=== PATIENT | female | born 1955 | race Caucasian/White ===

== ENCOUNTER 2019-09-16 14:16 | Outpatient (CLI) | payer OTHER, SELFPAY ==
--- NOTE | ~2019-09-16 | MM_ITS ---
EXAMINATION: MM screening [facility] w francie HISTORY: Screening mammogram TECHNIQUE: Craniocaudal and mediolateral oblique 3-D tomosynthesis images were obtained and synthetic 2-D images were generated. CAD analysis was submitted and interpreted. COMPARISON: 09/04/2018, 08/30/2017, 07/06/2016 bilateral digital screening mammogram examinations BREAST PARENCHYMAL COMPOSITION: There are scattered areas of fibroglandular density. FINDINGS: There is no evidence of suspicious mass, calcification, or architectural distortion to sugg est malignancy in either breast. There has been no suspicious interval change. IMPRESSION: 1. No mammographic evidence of malignancy. 2. Recommend routine screening mammography in one year. BI-RADS Category 1: Negative.. Reviewed, dictated and finalized at location A. CTOR OF HOUSING
== END 2019-09-16 14:17 | disposition home or self-care (01) ==
LOC: ANHIMG 14:20
PROVIDERS: PCP Family Medicine; Visit Provider Family Medicine
DX: Z12.31 Encounter for screening mammogram for malignant neoplasm of breast (principal)
CPT/HCPCS: 77063; 77067

== ENCOUNTER 2020-10-06 17:26 | Outpatient (CLI) | payer OTHER, SELFPAY ==
--- NOTE | ~2020-10-06 | MM_ITS ---
EXAMINATION: MM screening [facility] BI w francie HISTORY: Screening TECHNIQUE: Craniocaudal and mediolateral oblique 3-D tomosynthesis images were obtained and synthetic 2-D images were generated. CAD analysis was submitted and interpreted. COMPARISON: Comparison to multiple prior studies sequentially, with oldest reviewed study dated 05/08. BREAST PARENCHYMAL COMPOSITION: There are scattered areas of fibroglandular density. FINDINGS: There is no evidence of suspicious mass, calcification, or architectural distortion to sugg est malignancy in either breast. There has been no suspicious interval change. IMPRESSION: 1. No mammographic evidence of malignancy. 2. Recommend routine screening mammography in one year. BI-RADS Category 1: Negative Reviewed, dictated and finalized at location A. NCT PSYCHOLOGY PROFESSOR
== END 2020-10-06 17:27 | disposition home or self-care (01) ==
PROVIDERS: PCP Family Medicine; Visit Provider Family Medicine
DX: Z12.31 Encounter for screening mammogram for malignant neoplasm of breast (principal)
CPT/HCPCS: 77063; 77067

== ENCOUNTER 2021-05-13 01:33 | Day surgery (SDC) | payer OTHER, SELFPAY ==
[2021-04-28 13:48] VITALS: BMI 30.4
[2021-05-13 06:54] VITALS: BP 158/88; PULSE 75; RESP 20; TEMP 36.2; O2SAT 99
[2021-05-13] MEDS: LACTATED RINGERS 1,000 ML 150 ML IV CONT (07:13)
--- NOTE | 2021-05-13 07:17 | P.CONGI_ITS ---
Assessment and Plan Assessment and plan (1) Encounter for screening colonoscopy: Code(s): Z12.11 - Encounter for screening for malignant neoplasm of colon Status: Acute Assessment and Plan: Patient presents for screening colonoscopy. Appears to be at average risk for colon polyps. Further recommendations will be given after endoscopy. GI Consult Note Consult date/time: 05/13/21 07:17 HPI: Yadira Cook is a 65 year old female Presents for screening colonoscopy. Patient's current weight appetite bowel movements are normal. She denies abdominal pain. She has had no bleeding. Family history is noncontributory. He has been more than 10 years since last exam. Plan is for screening colonoscopy at this time. Review of Systems Review of Systems: All systems reviewed & are unremarkable except as noted in HPI and below PMFSH Past Medical History Medical History (Updated 05/13/21 @ 07:19 by Anupam Wetzel MD) Obesity (BMI 30.0-34.9) Osteopenia Family History Family History (Updated 01/24/20 @ 11:01 by Humaira Villafuerte [facility]) Sibling Acute myocardial infarction Family history of chronic obstructive pulmonary disease Mother Family history of dementia Hypertension Family history of elevated blood lipids Father Depression Cerebrovascular accident Other Family history of cardiovascular disease Social History Social History Smoking packs per day: 0.5 Smoking cigarettes per day: 10.0 Years smoked: 20 Smoking pack-years: 10.00 Smoking status: Never smoker Tobacco type: cigarettes Second hand tobacco smoke exposure: Yes Smoking end date: 08/07/01 Alcohol intake: never Living arrangements: with family Meds Home Medications and Allergies Home Medications Medication Instructions Recorded Confirmed Type ascorbic acid (vitamin C) 1,000 mg 1 gm PO DAILY 01/24/20 04/28/21 History tablet calcium carbonate 600 mg calcium 600 mg PO DAILY 01/24/20 04/28/21 History (1,500 mg) tablet cholecalciferol (vitamin D3) 25 25 mcg PO DAILY 01/24/20 04/28/21 History mcg (1,000 unit) capsule magnesium oxide 250 mg PO DAILY 01/24/20 04/28/21 History omega 4-jdl-keu-fish oil 1,200 mg 1 cap PO DAILY cap 06/21/21 09/22/21 History (144 mg-216 mg) capsule vitamin B complex 1 tablet PO DAILY 01/25/21 04/28/21 History vitamin E 200 unit capsule 200 unit PO DAILY 01/25/21 04/28/21 History Allergies Allergy/AdvReac Type Severity Reaction Status Date / Time lidocaine [From Xylocaine] Allergy Mild Rash Verified 05/13/21 06:53 metformin AdvReac Intermediate Diarrhea Verified 05/13/21 06:53 Vital Signs Vital Signs - 24 hr 05/13/21 06:54 Temperature 97.2 F L Pulse Rate 75 Respiratory Rate 20 Blood Pressure 158/88 H Pulse Oximetry 99 Exam Narrative: Physical exam reveals patient to be alert. Vital signs stable. HEENT exam is unremarkable. Patient is anicteric. Lungs are clear to auscultation and percussion. Heart is without murmur or extra sounds. Abdominal exam bowel sounds are present soft nontender with no hepatosplenomega ly. Digital external rectal exam is normal.
--- NOTE | 2021-05-13 07:33 | P.PNAN_ITS ---
Anes - Initial Pre Proc Eval Procedure: Operation Date: 05/13/21 08:00 Proposed Procedures p Screening Colonoscopy - Anupam Wetzel MD Date/Time: 05/13/21 07:33 Surgeon: Anupam Wetzel MD Pre Op Diagnosis: neoplasm screening Z12.11 Patient Data Age: 65 Gender: F Height: 1.63 m Weight: 77.5 kg Last Vital Signs Temp 97.2 F L 05/13/21 06:54 Pulse 75 05/13/21 06:54 Resp 20 05/13/21 06:54 BP 158/88 H 05/13/21 06:54 Pulse Ox 99 05/13/21 06:54 Allergies Allergy/AdvReac Type Severity Reaction Status Date / Time lidocaine [From Xylocaine] Allergy Mild Rash Verified 05/13/21 06:53 metformin AdvReac Intermediate Diarrhea Verified 05/13/21 06:53 Home Medications Medication Instructions Recorded Confirmed Type ascorbic acid (vitamin C) 1,000 mg 1 gm PO DAILY 01/24/20 04/28/21 History tablet calcium carbonate 600 mg calcium 600 mg PO DAILY 01/24/20 04/28/21 History (1,500 mg) tablet cholecalciferol (vitamin D3) 25 25 mcg PO DAILY 01/24/20 04/28/21 History mcg (1,000 unit) capsule magnesium oxide 250 mg PO DAILY 01/24/20 04/28/21 History omega 4-mdb-ufm-fish oil 1,200 mg 1 cap PO DAILY cap 01/25/21 04/28/21 History (144 mg-216 mg) capsule vitamin B complex 1 tablet PO DAILY 01/25/21 04/28/21 History vitamin E 200 unit capsule 200 unit PO DAILY 01/25/21 04/28/21 History Patient hx anesthesia problems: none Family hx anesthesia problems: none Results Review: All pre-operative results and documents have been reviewed as part of the pre-operative evaluation. [facility] Past Medical History Medical History (Updated 05/13/21 @ 07:19 by Anupam Wetzel MD) Obesity (BMI 30.0-34.9) Osteopenia Family History Family History (Updated 01/24/20 @ 11:01 by Humaira Villafuerte CMA) Sibling Acute myocardial infarction Family history of chronic obstructive pulmonary disease Mother Family history of dementia Hypertension Family history of elevated blood lipids Father Depression Cerebrovascular accident Other Family history of cardiovascular disease Social History Social History Smoking packs per day: 0.5 Smoking cigarettes per day: 10.0 Years smoked: 20 Smoking pack-years: 10.00 Smoking status: Never smoker Tobacco type: cigarettes Second hand tobacco smoke exposure: Yes Smoking end date: 08/07/01 Alcohol intake: never Living arrangements: with family Anes - Eval Final PreProcedure Day of Procedure 05/13/21 07:33 Patient weight: overweight Heart: regular rate and rhythm Lungs: clear to auscultation Airway: Mallampati scale class II Neurological: alert and oriented Last oral intake: >/= 8 hours ASA classification: II Emergent: no Anesthetic plan: proceed Anesthesia type and monitoring: general GIVS and standard monitoring Results Review: All pre-operative results and documents have been reviewed as part of the pre-operative evaluation. Informed Consent: The patient's anesthetic plan and its attendant risks and benefits were discussed with the patient/family/POA. Questions were solicited and answers provided to the satisfaction of the patient/family/POA.
[2021-05-13 08:30] VITALS: BP 150/82; PULSE 74; RESP 18; O2SAT 100
[2021-05-13 08:40] VITALS: BP 163/83; PULSE 72; RESP 16; O2SAT 100
[2021-05-13 08:50] VITALS: BP 154/86; PULSE 70; RESP 18; O2SAT 100
== END 2021-05-13 09:00 | disposition home or self-care (01) ==
PROVIDERS: PCP Family Medicine; Visit Provider Internal Medicine Gastroenterology
PROC: 0DJD8ZZ Inspection of Lower Intestinal Tract, Via Natural or Artificial Opening Endoscopic (ICD-10-PCS; CPT 45378; principal; 2021-05-13 08:00)
DX: Z12.11 Encounter for screening for malignant neoplasm of colon (principal); K64.8 Other hemorrhoids; K57.30 Diverticulosis of large intestine without perforation or abscess without bleeding; M85.80 Other specified disorders of bone density and structure, unspecified site; E66.9 Obesity, unspecified; Z68.29 Body mass index [BMI] 29.0-29.9, adult; Z87.891 Personal history of nicotine dependence
CPT/HCPCS: 45378; J2704; J7120

== ENCOUNTER 2021-10-25 07:16 | Outpatient (CLI) | payer BC, SELFPAY ==
--- NOTE | ~2021-10-25 | MM_ITS ---
EXAMINATION: MM screening [facility] BI w francie HISTORY: Screening mammogram TECHNIQUE: Craniocaudal and mediolateral oblique 3-D tomosynthesis images were obtained and synthetic 2-D images were generated. CAD analysis was submitted and interpreted. COMPARISON: 10/06/2020, 09/16/2019, 09/04/2018 bilateral screening mammogram examinations BREAST PARENCHYMAL COMPOSITION: There are scattered areas of fibroglandular density. FINDINGS: There is no evidence of suspicious mass, calcification, or architectural distortion to sugg est malignancy in either breast. There has been no suspicious interval change. IMPRESSION: 1. No mammographic evidence of malignancy. 2. Recommend routine screening mammography in one year. BI-RADS Category 1: Negative Reviewed, dictated and finalized at location A.
== END 2021-10-25 07:17 | disposition home or self-care (01) ==
LOC: ANHIMG 07:20
PROVIDERS: PCP Family Medicine; Visit Provider Family Medicine
DX: Z12.31 Encounter for screening mammogram for malignant neoplasm of breast (principal)
CPT/HCPCS: 77063; 77067

== ENCOUNTER 2022-12-14 07:59 | Outpatient (CLI) | payer BC, SELFPAY ==
--- NOTE | ~2022-12-14 | MM_ITS ---
EXAMINATION: MM screening [facility] BI w francie HISTORY: Screening mammogram TECHNIQUE: Craniocaudal and mediolateral oblique 3-D tomosynthesis images were obtained and synthetic 2-D images were generated. CAD analysis was submitted and interpreted. COMPARISON: 10/25/2021, 10/06/2020, 09/16/2019 BREAST PARENCHYMAL COMPOSITION: There are scattered areas of fibroglandular density. FINDINGS: No suspicious mass, calcification, or architectural distortion are identified in either saul ast to suggest malignancy. There has been no suspicious interval change. IMPRESSION: 1. No mammographic evidence of malignancy. 2. Recommend routine screening mammography in one year. BI-RADS Category 1: Negative Reviewed, dictated and finalized at location A.
== END 2022-12-14 08:00 | disposition home or self-care (01) ==
LOC: ANHIMG 08:04
PROVIDERS: PCP Family Medicine; Visit Provider Family Medicine
DX: Z12.31 Encounter for screening mammogram for malignant neoplasm of breast (principal)
CPT/HCPCS: 77063; 77067

== ENCOUNTER 2023-09-14 07:46 | Outpatient (CLI) | payer BC, SELFPAY ==
--- NOTE | ~2023-09-14 | DEXA_ITS ---
Bone Density Report Name: RONY HORAN Age: 68 Sex: Female Ethnicity: White Date of : 1955 Indication: osteopenia; height loss; Referring Provider: ROGER CODY Study: Bone densitometry was performed. Exam Date: September 14, 2023 Accession number: [id number] Bone Density: Region BMD T-score Z-score Classification AP Spine(L1-L4) 0.929 -1.1 0.8 Osteopenia Femoral Neck (Left) 0.624 -2.0 -0.5 Osteopenia Total Hip (Left) 0.745 -1.6 -0.3 Osteopenia Femoral Neck (Right) 0.640 -1.9 -0.3 Osteopenia Total Hip (Right) 0.764 -1.5 -0.2 Osteopenia Total Hip Mean 0.754 -1.6 -0.3 Osteopenia World Health Organization criteria for BMD impression classify patients as: Normal (T-score at or above -1.0), Osteopenia (T-score between -1.0 and -2.5), or Osteoporosis (T-score at or below -2.5). 10-year Fracture Risk(1): Major Osteoporotic Fracture 11% Hip Fracture 1.7% Reported Risk Factors: [place] (), Neck BMD=0.624, BMI=29.8 (1) FRAX(R) Version 3.08. Fracture probability calculated for an untreated patient. Fracture probability may be lower if the patient has received treatment. Previous Exams: Region Exam Age BMD T-score BMD Change BMD Change Date g/cm2 vs Baseline vs Previous AP Spine (L1-L4) 09/14/2023 68 0.929 -1.1 -0.044 (-4.5%) -0.044 (-4.5%) 12/19/2018 63 0.973 -0.7 Total Hip(Left) 09/14/2023 68 0.745 -1.6 -0.050 (-6.3%) -0.050 (-6.3%) 12/19/2018 63 0.795 -1.2 Total Hip(Right) 09/14/2023 68 0.764 -1.5 -0.067 (-8.0%) -0.067 (-8.0%) 12/19/2018 63 0.831 -0.9 *Denotes significance at 95% confidence level, LSC for AP Spine = 0.022 g/cm2, LSC for Total Hip = 0.027 g/cm2 Clinical Information Provided by Patient: Has used the following medications: Vitamin D, Calcium Patient maximum height was 65 Menopause Age: 47 Drinks caffeinated beverages Onset of menses at age 15 Number of children 2 Impression: The patient has low bone mass, based on the Left Femoral Neck T-score. The patient has an estimated ten-year risk of hip fracture of 1.7% and an estimated ten-year risk of major fracture of 11%, based on the WHO FRAX algorithm. The BMD for the AP Spine (L1-L4) decreased, changing by -4.5% since the last DXA exam. The BMD for the Total Hip(Left) decreased, changing by -6.3% since the last DXA exam. The BMD for the Total Hip(Right) decreased, changing by -8.0% since the last DXA exam. Discussion: BONE DENSITY IS LOW AT ONE OR MORE SKELETAL SITES. This patient's lowest T-score is l
== END 2023-09-14 07:47 | disposition home or self-care (01) ==
PROVIDERS: PCP Family Medicine; Visit Provider Family Medicine
DX: M85.89 Other specified disorders of bone density and structure, multiple sites (principal)
CPT/HCPCS: 77080

== ENCOUNTER 2024-02-06 09:42 | Outpatient (CLI) | payer BC, SELFPAY ==
--- NOTE | ~2024-02-06 | MM_ITS ---
EXAMINATION: MM screening [facility] BI w francie HISTORY: Screening mammogram TECHNIQUE: Craniocaudal and mediolateral oblique 3-D tomosynthesis images were obtained and synthetic 2-D images were generated. CAD analysis was submitted and interpreted. COMPARISON: 12/14/2022, 10/25/2021, 10/06/2020 BREAST PARENCHYMAL COMPOSITION:Not Dense. There are scattered areas of fibroglandular density. FINDINGS: No suspicious mass, calcification, or architectural distortion are identified in either saul ast to suggest malignancy. There has been no suspicious interval change. IMPRESSION: No mammographic evidence of malignancy. Recommend routine screening mammography in one year. BI-RADS Category 1: Negative Reviewed, dictated and finalized at location .
== END 2024-02-06 09:43 | disposition home or self-care (01) ==
PROVIDERS: PCP Family Medicine; Visit Provider Family Medicine
DX: Z12.31 Encounter for screening mammogram for malignant neoplasm of breast (principal)
CPT/HCPCS: 77063; 77067

== ENCOUNTER 2025-03-05 08:46 | Outpatient (CLI) | payer MEDICARE, SELFPAY ==
--- NOTE | ~2025-03-05 | MM_ITS ---
EXAMINATION: MM screening [facility] BI w francie HISTORY: Screening TECHNIQUE: Craniocaudal and mediolateral oblique 3-D tomosynthesis images were obtained and synthetic 2-D images were generated. CAD analysis was submitted and interpreted. COMPARISON: Comparison to multiple prior studies sequentially, with oldest reviewed study dated 09/04. BREAST PARENCHYMAL COMPOSITION: Not dense: There are scattered areas of fibroglandular density. FINDINGS: There is no evidence of suspicious mass, calcification, or architectural distortion to sugg est malignancy in either breast. There has been no suspicious interval change. IMPRESSION: 1. No mammographic evidence of malignancy. 2. Recommend routine screening mammography in one year. BI-RADS Category 1: Negative Reviewed, dictated and finalized at location []
--- OUTSIDE RECORDS SUMMARY | 2025-03-05 08:57 | XMS_ITS | Clinical Summary ---
[facility] Address [address] Attn: Epic Prelude ADT ARJUN ALBERTS [id number] Care Team Providers Care Icu Clerk Name Role Phone Unavailable Primary Care Provider Unavailabl e Medications sertraline (ZOLOFT) 25 mg tablet Take 1 Tablet (25 mg) by mouth daily. 90 Tablet 1 01/15/2023 10:19 AM CDT 10/20/2022 Active Immunizations Immunization Administration Dates Next Due INFLUENZA VACCINE QUADRIVALENT 6 MOS UP PF IM Social History Tobacco Use Types Packs/Day Years Used Date Smoking Tobacco: Never Assessed Comments Unknown Sex and Gender Information Value Date Recorded Sex Assigned at Not on file Legal Sex Female 3:26 PM CDT Gender Identity Not on file Sexual Orientation Not on file Plan of Treatment Health Maintenance Due Date Last Done Comments DTAP/TDAP/TD VACCINES (1 - Tdap) 1976 BREAST CANCER SCREENING 1997 COLORECTAL SCREENING 2002 Colorectal Cancer Screening 2002 FIT-DNA Q 3 years 2002 FIT/FOBT Q 1 year 2002 Flex Sig/CT Colonography Q 5 years 2002 PNEUMOCOCCAL VACCINE 50+ YEARS (1 of 1 - PCV) 07/06/20 07 ZOSTER VACCINE (1 of 2) 2007 OSTEOPOROSIS SCREENING 2022 INFLUENZA VACCINE (#1) 2025 05/24/2022 RSV VACCINE (60+ or ) (1 - 1-dose 75+ series) 2032 Insurance [employer]
== END 2025-03-05 08:47 | disposition home or self-care (01) ==
LOC: ANHIMG 08:47
PROVIDERS: PCP Family Medicine; Visit Provider Family Medicine
DX: Z12.31 Encounter for screening mammogram for malignant neoplasm of breast (principal)
CPT/HCPCS: 77063; 77067

== ENCOUNTER 2025-04-29 09:00 | Outpatient (RCR) | payer MEDICARE, SELFPAY ==
--- NOTE | 2025-03-26 09:11 | OPREHPOC ---
Outpatient Therapy Plan of Care This is a Multidisciplinary Plan of Care that may contain components documented by all disciplines (PT, OT, and ST.) PT Problem 1 PT Problem #1 Knowledge Deficit PT Goal 1 Goal / Goal Update Patient to demonstrate independence with HEP for improved self-reliance of symptom management. Target Visit 5 PT Problem 2 PT Problem #2 Pain PT Goal 1 Goal / Goal Update 1. Patient to decrease subjective reports of pain to <5/10 at its worst when negotiating stairs for improved tolerance. 2. Patient to report 50% improvement in quantity and quality of sleep due to reduced knee pain. 3. Pt will increase LEFS score by at least 9 points in order to demonstrate the minimal clinically important difference (MCID) in functional improvement. Target Visit 10 PT Problem 3 PT Problem #3 Impaired Strength PT Goal 1 Goal / Goal Update Patient to demonstrate JARRETT hip and knee strength > =5/5 for improved functional stability required for ADLs. Target Visit 10 PT Problem 4 PT Problem #4 Impaired Range of Motion PT Goal 1 Goal / Goal Update Patient to demonstrate an increase of R knee AROM of 0 deg to improve mobility required for gait mechanics. Target Visit 10
--- NOTE | 2025-03-26 09:12 | PTOPEVAL1 ---
Assessment and note entered by Maria L Devlin PT Evaluation Information Assessment Status Evaluation Subjective Information Primary Complaint: R Knee Pain History of current condition: Pt reports symptoms started over 6 months ago. However, the last 3 months it has gotten progressively worse. She has good and bad days, some days she isn't sure if she can even get up her stairs. She has 12 stairs to get into her basement, non-reciprocal pattern. She has more pain with ascending than descending, but on her bad days it is both. Pt has been going to her PCP for years and states that her L knee is worse than the R but she has more pain in the R. She does a dance to fit class once a week and she has to modify the twisting motions due to pain as well as squatting. Sxs made worse with: stairs, disrupted sleep, increased throbbing with prolonged dependent positioning, biking on an incline, turning on a planted foot, deep squats Sxs improved with: ibuprofen, massage, elevation in recliner, trazadone for sleep (helps a little) CLOF: has to sleep with a pillow between her knees , <5 mile walk and bike tolerance PLOF: no limitations, used to walk and bike ride all the time > 5miles Reported Pain Level Pain Score 2: Self Report Additional Pain Score Comments under her kneecap and medial knee pain Assessment PT Clinical Summary Pt is a 69 year old who presents to physical therapy with a primary complaint of R knee pain >3 months. Pt demonstrates JARRETT hip and R knee weakness, pain increased with stair negotiation and squatting, decreased ROM causing gait deficits , gait deficit, and decreased flexibility that limit their ability to perform ADLs. Pt will benefit from skilled physical therapy to address the above listed deficits and return to PLOF. HEP instructed and written handout provided, EX tolerated well with no adverse effects to note post-session. Pt was educated on importance of adherence to HEP. Pt was also educated on anatomy, prognosis, home modalities, and PT POC. Plan of Care Interventions Electrical Stimulation,Gait Training,Hot Pack/Cold Pack,Intermittent Compression Pump,Manual Therapy ,Neuro Re-education,Patient/Caregiver Education, Therapeutic Activities,Therapeutic Exercise,Self- Care/Home Management PT Services Indicated Yes Treatment Frequency and 1-2x/ wk for 10 sessions Duration These treatments will address the objective and functional deficits as defined above. The patient will be advanced safely and appropriately in order for the patient to progress towards his/her prior level of function. Additional exercises will be introduced and as well as a comprehensive home exercise program upon discharge, if needed, ?to ensure carryover of functional gains achieved in the clinic. This treatment plan has been reviewed and agreement upon by the patient.
--- NOTE | 2025-04-29 09:38 | OPREHPOC ---
Outpatient Therapy Plan of Care This is a Multidisciplinary Plan of Care that may contain components documented by all disciplines (PT, OT, and ST.) PT Problem 1 PT Problem #1 Knowledge Deficit PT Goal 1 Goal / Goal Update Patient to demonstrate independence with HEP for improved self-reliance of symptom management. 04-29-25 d/c goal met Target Visit 5 Progress Met PT Problem 2 PT Problem #2 Pain PT Goal 1 Goal / Goal Update 1. Patient to decrease subjective reports of pain to <5/10 at its worst when negotiating stairs for improved tolerance. 2. Patient to report 50% improvement in quantity and quality of sleep due to reduced knee pain. 3. Pt will increase LEFS score by at least 9 points in order to demonstrate the minimal clinically important difference (MCID) in functional improvement. 04-29-25 d/c goals met Target Visit 10 Progress Met PT Problem 3 PT Problem #3 Impaired Strength PT Goal 1 Goal / Goal Update Patient to demonstrate JARRETT hip and knee strength > =5/5 for improved functional stability required for ADLs. 04-29-25 d/c goal not met- improved to 4 to 4+/5 Target Visit 10 Progress Not Met PT Problem 4 PT Problem #4 Impaired Range of Motion PT Goal 1 Goal / Goal Update Patient to demonstrate an increase of R knee AROM of 0 deg to improve mobility required for gait mechanics. 04-29-25 d/c goal met Target Visit 10 Progress Met
--- NOTE | 2025-04-29 09:38 | PTOPDC ---
Assessment and note entered by Kandi Fox, PT Assessment Status Discharge Subjective Information knee is doing better, sleeping is better- about 75 % improved; stairs cause pain; have been doing all the exercises at home; going to continue with the fitness exercises and with the cooler weather can start back to riding my bike outside; ready to be finished with therapy. Reported Pain Level Pain Score 0: Self Report Additional Pain Score Comments pain range in the past week 0-2/10; medial knee pressure, stabbing kind of pressure; increase with stairs decrease pain: rest is not taking any meds/ibuprofen Assessment PT Clinical Summary Yadira has received 10 PT sessions for R knee pain. With today's assessment: pain rating of 0-2/10- medial knee; reports sleeping has improved to 75% of normal; ROM of knee is 0-125'; gross strength of bilateral hips and knees is 4 to 4+/5; education completed for HEP and pain management. The goals were partially achieved. Discharge PT services. She is to continue with her HEP and return to her fitness activity. Plan of Care PT Services Indicated No
== END 2025-04-29 10:42 | disposition home or self-care (01) ==
LOC: ANHPT 09:00
PROVIDERS: PCP Family Medicine; Visit Provider Family Medicine
DX: M22.2X1 Patellofemoral disorders, right knee (principal)
CPT/HCPCS: 97110; 97140; 97161; 97530